=== PATIENT | female | born 1945 | race Caucasian/White ===

== ENCOUNTER 2025-03-22 13:53 | Observation (INO) ==
[2025-03-22 14:19] LABS: Basophils # (auto) 0.01 K/uL (0.00-0.20); Basophils % (auto) 0.1 %; Eosinophils # (auto) 0.22 K/uL (0.00-0.50); Eosinophils % (auto) 2.6 %; Hematocrit (blood only) 40.5 % (37.0-47.0); Hemoglobin 13.4 g/dl (12.0-16.0); Immature Granulocytes # (auto) 0.05 K/uL (0.01-0.20); Immature Granulocytes % (auto) 0.6 %; Lymphocytes # (auto) 1.63 K/uL (1.20-3.40); Lymphocytes % (auto) 19.6 %; Mean Corpuscular Hgb Conc 33.1 g/dL (32.0-36.0); Mean Corpuscular Volume 90.6 fL (80.0-100.0); Mean Platelet Volume 9.2 fL (9.4-12.4); Monocytes # (auto) 0.61 K/uL (0.11-0.59); Monocytes % (auto) 7.3 %; Neutrophils # (auto) 5.81 K/uL (1.40-6.50); Neutrophils % (auto) 69.8 %; Platelet Count 208 K/uL (130-400); RDW Coefficient of Variation 13.1 % (11.5-14.5); RDW Standard Deviation 43.3 fL (36.4-46.3); Red Blood Count 4.47 M/uL (4.20-5.40); White Blood Count 8.33 K/ul (4.8-10.8)
--- NOTE | 2025-03-22 14:23 | Emergency Department Note ---
Impression & Plan Acute lower GI bleeding, Abnormal EKG, Elevated troponin I level, Campylobacter diarrhea ED Provider Note NAME: JANETH HERMOSILLO AGE: 79 SEX: F : 1945 ARRIVES VIA: Walk-In INFORMANT: Patient, the patient's significant other ED PROVIDER(S): Jaswant Torres DO CHIEF COMPLAINT: GI bleeding HPI: The patient is a 79-year-old female who presented to the emergency department for an evaluation of GI bleeding. She has noticed dark stool as well as dark emesis over the course the last 24 hours. The patient started having diarrhea symptoms on Sunday. She presented to [facility]. She was admitted there but signed out AGAINST MEDICAL ADVICE to come here. She denies having any abdominal pain. She does complain of nausea and vomiting. She denies have any back pain. She denies having any fever. ROS: See above HPI for pertinent positives & negatives. A total of 10 systems reviewed and were otherwise negative. PAST MEDICAL HISTORY: See Below PAST SURGICAL HISTORY: See Below FAMILY HISTORY: See Below SOCIAL HISTORY: See Below HOME MEDICATIONS: See Below ALLERGIES: See Below VITALS: See Below PHYSICAL EXAMINATION: GENERAL: Patient is awake alert in no acute distress patient is resting comfortably and showing no signs of anxiety EYES: The conjunctivae are clear. The pupils are round and reactive. EARS, NOSE, MOUTH AND THROAT: The nose is without any evidence of any deformity. NECK: The neck is nontender and supple. RESPIRATORY: Normal respiratory effort is noted there is no evidence of wheezing rhonchi or rales CARDIOVASCULAR: Regular rate and rhythm noted there no murmurs rubs or gallops normal S1 normal S2. GASTROINTESTINAL: The abdomen is distended. There is no specific tenderness guarding rigidity elicited. Rectal exam revealed dark stool that was heme positive. MUSCULOSKELETAL/EXTREMITIES: There is no evidence of gross deformity full range of motion is noted in the hips and shoulders. SKIN: There is no obvious evidence of any rash. There are no petechiae, pallor or cyanosis noted. NEUROLOGIC: Patient is awake alert and oriented x3 MEDICAL DECISION MAKING: The patient is a 79-year-old female who presented to the emergency department for an evaluation of diarrhea and vomiting. She did have some dark stool. The stool was heme positive on physical exam. The patient was treated with proton pump inhibitor as well as H2 blockers. The patient was reevaluated multiple times. I discussed the patient's laboratory and radiographic studies with her and her family. Given her findings I discussed her condition with the on-call [facility] hospitalist. Stool studies were sent and ultimately were positive for Campylobacter. She was treated with Zithromax. Triage Nursing notes reviewed. Prior medical records reviewed Vital Signs: reviewed and remarkable for elevated blood pressure. Differential diagnosis: Etiologies such as appendicitis, diverticulitis, obstruction, inflammatory bowel disease, renal colic, PUD, biliary pathology, pancreatitis, mesenteric ischemia, aortic pathology, infections, genitourinary, UTI, perforated viscus, as well as others were entertained. ER treatment provided: See below Diagnostics interpreted by me: ECG: EKG was obtained in the emergency department. My interpretation is normal sinus rhythm at 77 bpm. There is no ectopy. Nonspecific ST abnormalities were noted. QTc was 384 ms. Cardiac Monitoring: An order was placed for continuous cardiac monitoring. The monitor shows a rate of 81 bpm with sinus rhythm. Laboratory studies: As stated above and show below. Imaging studies: See below. Radiographic imaging was reviewed by myself Consultation(s): I discussed this case with Dr. Pang who is on-call for the [facility] hospitalist group. Past Med/Surg History Problem List (Updated 03/22/25 @ 16:51 by Jaswant Torres DO) Campylobacter diarrhea (Acute) Elevated troponin I level (Acute) Abnormal EKG (Acute) Acute lower GI bleeding (Acute) Medical History (Updated 03/22/25 @ 16:51 by Jaswant Torres DO) Osteoporosis Migraine resolved after menopause GERD (gastroesophageal reflux disease) Surgical History (Updated 03/22/25 @ 15:26 by Reshma Thibodeaux PA-C) S/P wrist surgery History of ankle surgery H/O tubal ligation History of colonoscopy S/P excision of ganglion cyst left finger Family History (Updated 03/22/25 @ 15:21 by Reshma Thibodeaux PA-C) Other Breast cancer Lung cancer Ovarian cancer Prostate cancer Denies family history of Colorectal cancer Social History (Updated 03/22/25 @ 15:26 by Reshma Thibodeaux PA-C) Smoking Status: Never smoker Hx Alcohol Use: Yes Alcohol Intake Frequency: Monthly or Less Hx Substance Use: No Preferred Language: Czech Feels Safe at Home: Yes Allergies Allergies Allergy/AdvReac Type Severity Reaction Status Date / Time nickel AdvReac Rash Verified 03/22/25 15:26 Home Meds Home Medications Medication Instructions Recorded Confirmed duloxetine 60 mg capsule,delayed 60 mg PO HS 03/22/25 03/22/25 release omeprazole 20 mg capsule,delayed 20 mg PO DAILY 03/22/25 03/22/25 release Results & Data (ED) Vital Signs Vital Signs - 24 hr 03/22/25 13:56 03/22/25 14:12 03/22/25 14:26 Pulse Rate 83 Pulse Rate [Apical] 79 Pulse Rate from SpO2 Sensor Pulse Strength Normal Respiratory Rate 16 22 Respiratory Effort / Characteristics Non-Labored Spontaneous Respiratory Depth Normal Respiratory Pattern Regular Blood Pressure 128/70 Blood Pressure [Left Arm] 152/72 H Blood Pressure Mean 89 Blood Pressure Mean [Left Arm] 98 Blood Pressure Position Sitting Pulse Oximetry 98 97 96 Oxygen Delivery Method Room Air Room Air Room Air Sepsis Recent Fever Within 48 Hours No Sepsis New/Unexplained Change in Mental Status No Sepsis Action Taken by Nursing No Action Required 03/22/25 14:57 Pulse Rate 81 Pulse Rate [Apical] Pulse Rate from SpO2 Sensor 81 Pulse Strength Respiratory Rate 19 Respiratory Effort / Characteristics Respiratory Depth Respiratory Pattern Blood Pressure Blood Pressure [Left Arm] Blood Pressure Mean Blood Pressure Mean [Left Arm] Blood Pressure Position Pulse Oximetry 97 Oxygen Delivery Method Sepsis Recent Fever Within 48 Hours Sepsis New/Unexplained Change in Mental Status Sepsis Action Taken by Half-Way Medications Current Medication List: was personally reviewed by me Laboratory Data Attestation: I reviewed the patient's lab results. 03/22/25 14:06 03/22/25 14:06 Lab Results 03/22/25 03/22/25 03/22/25 Range/Units 14:06 14:13 15:05 WBC 8.33 (4.8-10.8) K/ul RBC 4.47 (4.20-5.40) M/uL Hgb 13.4 (12.0-16.0) g/dl POC Hgb 13.3 (12.0-16.0) g/dl Hct 40.5 (37.0-47.0) % POC Hct 39 (37-47) % MCV 90.6 (80.0-100.0) fL MCH 30.0 (25.0-34.0) pg MCHC 33.1 (32.0-36.0) g/dL RDW Std Deviation 43.3 (36.4-46.3) fL RDW Coeff of Cortez 13.1 (11.5-14.5) % Plt Count 208 (130-400) K/uL MPV 9.2 L (9.4-12.4) fL Immature Gran % (Auto) 0.6 % Neut % (Auto) 69.8 % Lymph % (Auto) 19.6 % Sanders % (Auto) 7.3 % Eos % (Auto) 2.6 % Baso % (Auto) 0.1 % Neut # (Auto) 5.81 (1.40-6.50) K/uL Lymph # (Auto) 1.63 (1.20-3.40) K/uL Sanders # (Auto) 0.61 H (0.11-0.59) K/uL Eos # (Auto) 0.22 (0.00-0.50) K/uL Baso # (Auto) 0.01 (0.00-0.20) K/uL Immature Gran # (Auto) 0.05 (0.01-0.20) K/uL PT 10.5 (9.0-12.0) Seconds INR 1.0 (0.9-1.1) APTT 25 (21-31) Seconds PTT Ratio 0.9 POC Sodium 142 (135-144) mmol/L Sodium 141 (136-145) mmol/L POC Potassium 3.5 (3.3-5.0) mmol/L Potassium 3.5 (3.5-5.1) mmol/L POC Chloride 109 (101-112) mmol/L Chloride 112 H (98-107) mmol/L Carbon Dioxide 23 (21-32) mmol/L POC Total CO2 21 L (24-31) mmol/L Anion Gap 6 (3-11) POC Anion Gap 16.0 (16-25) mmol/L POC BUN 18 (7-18) mg/dl BUN 19 (6-23) mg/dl Creatinine 0.94 (0.6-1.2) mg/dl POC Creatinine 1.0 (0.6-1.3) mg/dl Est Cr Clr Drug Dosing 54.1 ml/min eGFR 62.11 BUN/Creatinine Ratio 20.2 H (10-20) Glucose 119 H (70-99(Fasting)) mg/dl POC Glucose (other) 111 H (70-99) mg/dl Calcium 8.9 (8.6-10.3) mg/dl POC Ioniz Calcium Rodger 1.23 (1.12-1.32) mmol/l Total Bilirubin 0.6 (0.2-1.0) mg/dl AST 22 (13-39) U/L ALT 21 (7-52) U/L Alkaline Phosphatase 78 (34-104) U/L Troponin I High Sens 28.0 H (0-14) pg/ml Total Protein 6.3 (6.0-8.3) gm/dl Albumin 3.4 (3.4-5.0) gm/dl Globulin 2.9 (2.5-4.0) gm/dl Albumin/Globulin Ratio 1.2 (0.9-2) Lipase 14 (11-82) U/L Stl C. cayetanensis PCR Not Detected (NotDetected) Stool Rotavirus A PCR Not Detected (NotDetected) Stl Adenov F 40/41 PCR Not Detected (NotDetected) Stool Astrovirus (PCR) Not Detected (NotDetected) Stool Campylobacter PCR DETECTED A* (NotDetected) Stl C. diff Tox B Gene Negative Cdiff Gene (Neg) Stl C. diff [id number] NEGATIVE Stool Cryptosporidium PCR Not Detected (NotDetected) Stl E.coli Shiga Tox PCR Not Detected (NotDetected) Stl Enterotoxigenic E PCR Not Detected (NotDetected) Stool EPEC (PCR) Not Detected (NotDetected) Stool EAEC (PCR) Not Detected (NotDetected) Stl E. histolytica PCR Not Detected (NotDetected) Stool Giardia Lamblia PCR Not Detected (NotDetected) Stool Salmonella PCR Not Detected (NotDetected) Stool Sapovirus (PCR) Not Detected (NotDetected) Stl P. shigelloides PCR Not Detected (NotDetected) Stl Shigella/EIEC PCR Not Detected (NotDetected) St Y.enterocolitica PCR Not Detected (NotDetected) Stool Vibrio (PCR) Not Detected (NotDetected) Stl Vibrio cholerae PCR Not Detected (NotDetected) Stl Norovirus GI/GII PCR Not Detected (NotDetected) Blood Type A Positive Antibody Screen NEGATIVE Administered Medications Pantoprazole Sodium 40 mg/ (Dextrose) 100 mls @ 20 mls/hr IV Q5H RAN Stop: 04/21/25 15:59 Last Admin: 03/22/25 16:17 Dose: 8 mg/hr, 20 mls/hr Documented By: MIGUEL Discontinued Medications Pantoprazole Sodium (Protonix) 40 mg in 10 mls @ 5 mls/min IV NOW ONE Stop: 03/22/25 14:00 Last Admin: 03/22/25 14:20 Dose: 5 mls/min Documented By: LINDY Famotidine (Pepcid 20mg Iv Push) 20 mg in 5 mls @ 2.5 mls/min IV NOW STA Stop: 03/22/25 14:00 Last Admin: 03/22/25 14:20 Dose: 2.5 mls/min Documented By: LINDY Pantoprazole Sodium 40 mg/ (Dextrose) 110 mls @ 480 mls/hr IV NOW ONE Stop: 03/22/25 15:48 Last Admin: 03/22/25 16:15 Dose: 480 mls/hr Documented By: MIGUEL Ioversol (Optiray 320 100ml) 93 ml IV ONCE ONE Stop: 03/22/25 15:57 Last Admin: 03/22/25 15:57 Dose: 93 ml Documented By: HERBER Ondansetron HCl (Ondansetron Inj 2 Mg/Ml 2 Ml Vial) 4 mg IV NOW STA Stop: 03/22/25 14:00 Last Admin: 03/22/25 14:20 Dose: 4 mg Documented By: LINDY Pantoprazole Sodium (Pantoprazole Bolus/Drip) 1 each IV NOW STA Stop: 03/22/25 15:36 Last Admin: 03/22/25 16:15 Dose: 1 each Documented By: MIGUEL Imaging Data Attestation: I personally reviewed and interpreted this imaging study as follows: My Impression: 1 view chest x-ray and KUB were obtained in the emergency department. My interpretation is no free air or definite infiltrate, enlarged gastric shadow was noted, final report below. Radiologist's Impression: Chest X-Ray 03/22/25 13:59 EXAM: X-ray chest one-view portable CLINICAL HISTORY: Pain PRIORS: None TECHNIQUE: Frontal view chest FINDINGS: The chest is well-expanded. No airspace consolidation, effusion or congestive changes. Heart size is normal. No pneumothorax. Trachea is patent. Osseous structures demonstrate no acute abnormality. No radiopaque foreign body. IMPRESSION: No plain film evidence of an acute cardiopulmonary process. Electronically signed by Janae Tran 03-22-2025 3:33 PM KUB X-Ray 03/22/25 13:59 EXAMINATION: X-ray KUB/abdomen 1 view CLINICAL HISTORY: Abdominal pain PRIORS: None TECHNIQUE: Single frontal view abdomen FINDINGS: An extremely large amount of gas present in the distended stomach. Gas present throughout the colon. No dilated loops of bowel or air-fluid levels. No subdiaphragmatic gas. No formed stool identified in the colon. No unusual calcifications. IMPRESSION: Gaseous distention of the stomach which may represent gastric outlet obstruction. ACT 112: Positive. There are findings on this examination that require communication between the performing entity and the patient following Patient Test Result Information Act ([place] ACT 112) guidelines. Electronically signed by Janae Tran 03-22-2025 3:34 PM Discharge Plan Visit Data Chief Complaint: GI Assessment Stated Complaint: BLACK STOOL, BLACK EMESIS ED Provider: Jaswant Torres Discharge Problem: Acute lower GI bleeding, Abnormal EKG, Elevated troponin I level, Campylobacter diarrhea Patient Disposition: Being Evaluated by Hospitalist Condition: Fair Forms Stand Alone Forms: [facility] Prescriptions Prescriptions: No Action omeprazole 20 mg capsule,delayed release(DR/EC) 20 mg PO DAILY duloxetine 60 mg capsule,delayed release(DR/EC) 60 mg PO HS Referrals Referrals: PCP,NO [Physician] -
[2025-03-22 14:25] LABS: iSTAT Hemoglobin 13.3 g/dl (12.0-16.0); iSTAT Ionized Calcium 1.23 mmol/l (1.12-1.32); iSTAT Potassium 3.5 mmol/L (3.3-5.0)
[2025-03-22 14:36] LABS: Albumin Globulin Ratio 1.2 (0.9-2); Albumin Level 3.4 gm/dl (3.4-5.0); BUN Creatinine Ratio 20.2 (10-20); Bilirubin,Total 0.6 mg/dl (0.2-1.0); Calcium 8.9 mg/dl (8.6-10.3); Creatinine Clr Calc Pharmacy 54.1 ml/min; Globulin 2.9 gm/dl (2.5-4.0); Potassium 3.5 mmol/L (3.5-5.1); Total Protein 6.3 gm/dl (6.0-8.3)
[2025-03-22 14:48] LABS: Partial Thromboplastin Ratio 0.9; Partial Thromboplastin Time 25 Seconds (21-31); Prothrombin Time 10.5 Seconds (9.0-12.0)
--- NOTE | 2025-03-22 15:23 | History & Physical Report ---
Date of Service March 22, 2025 Assessment & Plan (1) Campylobacter diarrhea: (2) Acute lower GI bleeding: (3) Elevated troponin I level: Plan This is a 79 y/o female with osteoporosis who presents to the ED today with diarrhea and black stools for four days. She was admitted to an OSH two days ago but signed out AMA after there was no GI specialist available for further evaluation. Work-up in the ED at [facility] reveals normal H&H, normal BUN, mildly elevated troponin. Pt denies significant cardiac or GI history. She had a CT at OSH but is unsure of the results. KUB personally reviewed and shows large distended stomach with concern for gastric outlet obstruction #Diarrhea #Melena #Indigestion - Admit to med telemetry - Serial H&H - Pantoprazole gtt - Consult GI - NPO for now - Request records from OSH ([facility]) - CT abd/pel with IV contrast to further evaluate distended stomach - Consider NGT to decompress stomach pending CT results #Elevated troponin - no known history of cardiac disease - Trend troponin - Repeat EKG in AM Pt seen and reviewed with collaborating physician, Dr. Pang. Plan of care discussed and as outlined above. Code status: full code DVT prophylaxis: SCDs I spent a total of 68 minutes coordinating, documenting and providing care for this patient excluding time spent in the performance of separately billed services or time spent by another provider or QHP. Mami Thibodeaux PA-C Addendum: Stool studies positive for Campylobacter. Will start azithromycin. CT personally reviewed and shows distended stomach with retained contents. Spoke with Dr. Pang. Will order NGT placement for decompression. Mami Thibodeaux PA-C History of Present Illness Chief Complaint: diarrhea Primary Care Provider: Kassie Schaefer MD This is a 79 y/o female with osteoporosis who presents to the ED today with diarrhea and black stools for four days. She reports that she started with diarrhea on (four days ago) - 15 stools that day. Does not recall eating anything unusual the day prior. No sick contacts. No preceding symptoms. Associated lower abdominal cramping and occasional epigastric burning discomfort. +loss of appetite, increased eructation. Stools turned black on Sunday and was admitted to [facility]. She had a CT scan while she was there but unsure about the results. She signed out AMA today because no GI specialist was available, which she thought that she needed, and came to [facility] for evaluations. She was told that her C diff was negative but not given a specific diagnosis as to the etiology of her symptoms. She does note that she was put on heparin for DVT prophylaxis while there which her family was concerned about since she was having coffee-ground emesis and melanotic stools. She denies heartburn, post-prandial abdominal pain. She was started on omeprazole years ago when she was taking a lot of Aleve for migraines. Denies consistent NSAID use. No history of PUD. Allergies Allergy/AdvReac Type Severity Reaction Status Date / Time nickel AdvReac Rash Verified 03/22/25 15:26 Home Medications Medication Instructions Recorded Confirmed Type duloxetine 60 mg capsule,delayed 60 mg PO HS 03/22/25 03/22/25 History release omeprazole 20 mg capsule,delayed 20 mg PO DAILY 03/22/25 03/22/25 History release Past Med/Surg History Problem List (Updated 03/22/25 @ 18:48 by Reshma Thibodeaux PA-C) Diarrhea Campylobacter diarrhea (Acute) Elevated troponin I level (Acute) Abnormal EKG (Acute) Acute lower GI bleeding (Acute) Medical History (Updated 03/22/25 @ 18:48 by Reshma Thibodeaux PA-C) Osteoporosis Migraine resolved after menopause GERD (gastroesophageal reflux disease) Surgical History (Updated 03/22/25 @ 15:26 by Reshma Thibodeaux PA-C) S/P wrist surgery History of ankle surgery H/O tubal ligation History of colonoscopy S/P excision of ganglion cyst left finger Family History (Updated 03/22/25 @ 15:21 by Reshma Thibodeaux PA-C) Other Breast cancer Lung cancer Ovarian cancer Prostate cancer Denies family history of Colorectal cancer Social History (Updated 03/22/25 @ 15:26 by Reshma Thibodeaux PA-C) Smoking Status: Never smoker Second Hand Exposure: No; Do You Dip or Chew Tobacco: No; Hx Alcohol Use: No Hx Substance Use: No Preferred Language: Tanzanian Communication Ability: Effective Vocational Placement Specialist Required: No Beliefs That Will Affect Care: None Current Living Situation: Spouse and Other Current Living Situation Comment: lives with and son Other Information That Helps Us Care for You: No Feels Safe at Home: Yes Safety Concerns: Feels Safe At This Time Assistive Devices: None Review of Systems Review of Systems: All systems reviewed & are unremarkable except as noted in Subjective Physical Exam Physical Exam: Please see physician note for details of the physical exam. Results & Data Results & Data Vital Signs (Past 12 Hours) Vital Signs Pulse Pulse Resp BP BP Pulse Ox O2 Del Method 03/22/25 14:57 81 19 97 03/22/25 14:26 79 22 152/72 H 96 Room Air 03/22/25 14:12 97 Room Air 03/22/25 13:56 83 16 128/70 98 Room Air Laboratory Results Lab Results 03/22/25 03/22/25 Range/Units 14:06 14:13 WBC 8.33 (4.8-10.8) K/ul RBC 4.47 (4.20-5.40) M/uL Hgb 13.4 (12.0-16.0) g/dl POC Hgb 13.3 (12.0-16.0) g/dl Hct 40.5 (37.0-47.0) % POC Hct 39 (37-47) % MCV 90.6 (80.0-100.0) fL MCH 30.0 (25.0-34.0) pg MCHC 33.1 (32.0-36.0) g/dL RDW Std Deviation 43.3 (36.4-46.3) fL RDW Coeff of Cortez 13.1 (11.5-14.5) % Plt Count 208 (130-400) K/uL MPV 9.2 L (9.4-12.4) fL Immature Gran % (Auto) 0.6 % Neut % (Auto) 69.8 % Lymph % (Auto) 19.6 % Mesa % (Auto) 7.3 % Eos % (Auto) 2.6 % Baso % (Auto) 0.1 % Neut # (Auto) 5.81 (1.40-6.50) K/uL Lymph # (Auto) 1.63 (1.20-3.40) K/uL Mesa # (Auto) 0.61 H (0.11-0.59) K/uL Eos # (Auto) 0.22 (0.00-0.50) K/uL Baso # (Auto) 0.01 (0.00-0.20) K/uL Immature Gran # (Auto) 0.05 (0.01-0.20) K/uL PT 10.5 (9.0-12.0) Seconds INR 1.0 (0.9-1.1) APTT 25 (21-31) Seconds PTT Ratio 0.9 POC Sodium 142 (135-144) mmol/L Sodium 141 (136-145) mmol/L POC Potassium 3.5 (3.3-5.0) mmol/L Potassium 3.5 (3.5-5.1) mmol/L POC Chloride 109 (101-112) mmol/L Chloride 112 H (98-107) mmol/L Carbon Dioxide 23 (21-32) mmol/L POC Total CO2 21 L (24-31) mmol/L Anion Gap 6 (3-11) POC Anion Gap 16.0 (16-25) mmol/L POC BUN 18 (7-18) mg/dl BUN 19 (6-23) mg/dl Creatinine 0.94 (0.6-1.2) mg/dl POC Creatinine 1.0 (0.6-1.3) mg/dl Est Cr Clr Drug Dosing 54.1 ml/min eGFR 62.11 BUN/Creatinine Ratio 20.2 H (10-20) Glucose 119 H (70-99(Fasting)) mg/dl POC Glucose (other) 111 H (70-99) mg/dl Calcium 8.9 (8.6-10.3) mg/dl POC Ioniz Calcium Rodger 1.23 (1.12-1.32) mmol/l Total Bilirubin 0.6 (0.2-1.0) mg/dl AST 22 (13-39) U/L ALT 21 (7-52) U/L Alkaline Phosphatase 78 (34-104) U/L Troponin I High Sens 28.0 H (0-14) pg/ml Total Protein 6.3 (6.0-8.3) gm/dl Albumin 3.4 (3.4-5.0) gm/dl Globulin 2.9 (2.5-4.0) gm/dl Albumin/Globulin Ratio 1.2 (0.9-2) Lipase 14 (11-82) U/L Blood Type A Positive Antibody Screen NEGATIVE Medications Administered Discontinued Medications Pantoprazole Sodium (Protonix) 40 mg in 10 mls @ 5 mls/min IV NOW ONE Stop: 03/22/25 14:00 Last Admin: 03/22/25 14:20 Dose: 5 mls/min Documented By: LINDY Famotidine (Pepcid 20mg Iv Push) 20 mg in 5 mls @ 2.5 mls/min IV NOW STA Stop: 03/22/25 14:00 Last Admin: 03/22/25 14:20 Dose: 2.5 mls/min Documented By: LINDY Ondansetron HCl (Ondansetron Inj 2 Mg/Ml 2 Ml Vial) 4 mg IV NOW STA Stop: 03/22/25 14:00 Last Admin: 03/22/25 14:20 Dose: 4 mg Documented By: LINDY Supervising Physician Co-Signing Physician Notes I have seen and discussed the case with the collaborating advanced practitioner. I agree with the above H&P. I have reviewed and confirmed the patients medical history, the findings on physical examination, and the patients diagnosis and treatment plan with Morelia PEACE and agree with the information documented. Ms. Navarrete is a 79 y/o female with no significant medical history admitted for abdominal pain, nausea, and reports of melena/coffee ground emesis. Patient states that she was in [facility] after 15 episodes nonstop of diarrhea. She does endorse perhaps eating a dish with undercooked chicken, but no other diet changes, recent travel, etc. She states that while in the hospital she noted melena and coffee ground emesis, and her sister encouraged her to leave [facility] for a new hospital with GI GENERAL APPEARANCE: AxOx4, generally well-appearing female except mild discomfort with nausea. HEENT: NC, AT. MMM. EOMI, clear conjunctiva, oropharynx clear. NECK: Supple without lymphadenopathy. No stiffness or restricted ROM. HEART: Normal rate and regular rhythm, normal S1/S1, no m/r/g LUNGS: CTAB, moving air well. No crackles or wheezes are heard. ABDOMEN: Soft, protuberant, high pitched bowel sound in RUQ/epigastrium diminished in LLQ . BACK: No CVAT, no obvious deformity. EXTREMITIES: Without cyanosis, clubbing or edema. NEUROLOGICAL: Grossly nonfocal. Alert and oriented, moving all 4 extremities. CN not formally tested but appear grossly intact. Skin: Warm and dry without any rash. #Melena #Coffeeground emesis reported #Acute diarrhea iso campylobacter gastroenteritis hemoocult + ED, possibly 2/2 GI infection start azithromycin IV for now CT AB ordered, pending formal read NPO with PPI drip GI consult hgb stable, but will trend Given distention noted on XR and CT trial NGT given nausea wretching, patient did not tolerate rest of plan as above I spent a total of 20 minutes coordinating, documenting, and providing care for this patient excluding time spent in the performance of separately billed services. All of the aforementioned completed outside of collaborating with the assigned advanced practitioner for a full treatment plan. I have reviewed the advanced practitioner's documentation, and I agree with, and take responsibility for the plan of care
--- NOTE | 2025-03-22 15:33 | XRay Report ---
EXAM: X-ray chest one-view portable CLINICAL HISTORY: Pain PRIORS: None TECHNIQUE: Frontal view chest FINDINGS: The chest is well-expanded. No airspace consolidation, effusion or congestive changes. Heart size is normal. No pneumothorax. Trachea is patent. Osseous structures demonstrate no acute abnormality. No radiopaque foreign body. IMPRESSION: No plain film evidence of an acute cardiopulmonary process. Electronically signed by Janae Tran 03-22-2025 3:33 PM
--- NOTE | 2025-03-22 15:34 | XRay Report ---
EXAMINATION: X-ray KUB/abdomen 1 view CLINICAL HISTORY: Abdominal pain PRIORS: None TECHNIQUE: Single frontal view abdomen FINDINGS: An extremely large amount of gas present in the distended stomach. Gas present throughout the colon. No dilated loops of bowel or air-fluid levels. No subdiaphragmatic gas. No formed stool identified in the colon. No unusual calcifications. IMPRESSION: Gaseous distention of the stomach which may represent gastric outlet obstruction. ACT 112: Positive. There are findings on this examination that require communication between the performing entity and the patient following Patient Test Result Information Act ([place] ACT 112) guidelines. Electronically signed by Janae Tran 03-22-2025 3:34 PM
[2025-03-22 16:06] LABS: C. diff 027-NAP1-BI NEGATIVE; Cdiff Toxin B Gene (2yr or >) Negative Cdiff Gene (Neg)
[2025-03-22 16:38] LABS: Adenovirus F 40/41 PCR Not Detected (NotDetected); Astrovirus PCR Not Detected (NotDetected); Cryptosporidium PCR Not Detected (NotDetected); Cyclospora cayetanensis PCR Not Detected (NotDetected); Entamoeba histolytica PCR Not Detected (NotDetected); Enteroaggregative E.coli(EAEC) Not Detected (NotDetected); Enteropathogenic E.coli (EPEC) Not Detected (NotDetected); Enterotoxigenic E.coli (ETEC) Not Detected (NotDetected); Giardia lamblia PCR Not Detected (NotDetected); Norovirus GI/GII PCR Not Detected (NotDetected); Plesiomonas shigelloides PCR Not Detected (NotDetected); Rotavirus A PCR Not Detected (NotDetected); Salmonella PCR Not Detected (NotDetected); Sapovirus PCR Not Detected (NotDetected); Shiga-like Toxin E.coli (STEC) Not Detected (NotDetected); Shigella/Enteroinvasive E.coli Not Detected (NotDetected); Vibrio cholerae PCR Not Detected (NotDetected); Vibrio species PCR Not Detected (NotDetected); Yersinia enterocolitica PCR Not Detected (NotDetected)
[2025-03-22 16:40] LABS: Campylobacter PCR DETECTED (NotDetected)
--- NOTE | 2025-03-22 19:06 | CT Scan Report ---
EXAM: CT abd pelvis IV con only CLINICAL HISTORY: Melanotic diarrhea. TECHNIQUE: CT of the abdomen and pelvis was performed with IV contrast, with the following protocol: axial images with, and reconstructed coronal and sagittal images. One of the following dose reduction techniques was utilized for this exam: Automated exposure control, adjustment of the mA and/or kV according to patient size, and use of iterative reconstruction. COMPARISON: None. FINDINGS: Abdomen: Liver: Normal in size, shape, and density. No focal lesions, cysts, or masses were identified. Hepatic vasculature and biliary ducts are unremarkable. Gallbladder and Biliary System: The gallbladder is normal in size and shape. Small dense gallstones were noted in its neck region. No wall thickening or pericholecystic fluid The common bile duct is normal in caliber without dilation. Pancreas: Pancreatic head, body, and tail are visualized and appear normal in size and density. No pancreatic masses or calcifications were noted. The pancreatic duct is not dilated. Spleen: Normal in size, shape, and density. No splenic lesions or masses were identified. Appendix: The appendix is normal in size without martha appendiceal fat stranding, and without an appendicolith. No evidence of appendiceal abscess or perforation. Kidneys and Adrenal Glands: Two left renal middle calyceal dense stones noted of an average 4 mm size. Both kidneys are normal in size, shape, and position. Cortical thickness is within normal limits. No renal calculi or hydronephrosis. Adrenal glands are unremarkable with no evidence of masses or hyperplasia. Diffuse aortic atherosclerotic changes noted. Pelvis: Urinary Bladder: Normal in contour and wall thickness. No intraluminal lesions identified. Uterus: Average age matched size and contour. No masses or abnormal thickening. Ovaries: Not well visualized but no gross abnormalities noted. Vagina: Normal in contour and wall thickness. Cervix: No evidence of mass or abnormal thickening. Peritoneal and Retroperitoneal Structures: No free fluid or abnormal fluid collections were identified within the abdomen or pelvis. No lymphadenopathy was noted. Bowel: A small sigmoid non-complicated diverticulum is seen. The visualized bowel loops are normal in caliber and appearance. No evidence of bowel obstruction or wall thickening. Bones and Soft Tissues: Mild lumbar spondylosis with bilateral facet joint osteoarthritis noted. Pelvic bones and soft tissues are unremarkable. No fractures or abnormal masses were identified. Mild bilateral pleural effusions noted. A small paraesophageal hiatus hernia is seen. A small umbilical hernia harbouring omental fat is seen. IMPRESSION: 1. Tiny gall bladder stones noted. 2. A small sigmoid non-complicated diverticulum is seen. 3. Left renal middle calyceal dense stones noted. 4. Mild bilateral pleural effusions noted. 5. A small paraesophageal hiatus hernia is seen. 6. A small umbilical hernia harbouring omental fat is seen. 7. Bowel loops are normal in size and appearance. 8. Overall, CT with and without contrast abdomen and pelvis demonstrate normal findings without evidence of acute intra-abdominal pathology. Clinical correlation is recommended for further evaluation. Electronically signed by Wesley Celaya 03-22-2025 7:06 PM
[2025-03-22 21:53] LABS: Hemoglobin 13.6 g/dl (12.0-16.0)
[2025-03-23 02:16] LABS: Basophils # (auto) 0.01 K/uL (0.00-0.20); Basophils % (auto) 0.1 %; Eosinophils % (auto) 2.7 %; Hematocrit (blood only) 38.7 % (37.0-47.0); Hemoglobin 12.8 g/dl (12.0-16.0); Immature Granulocytes # (auto) 0.05 K/uL (0.01-0.20); Immature Granulocytes % (auto) 0.7 %; Lymphocytes % (auto) 18.6 %; Mean Corpuscular Hemoglobin 29.7 pg (25.0-34.0); Mean Corpuscular Hgb Conc 33.1 g/dL (32.0-36.0); Mean Corpuscular Volume 89.8 fL (80.0-100.0); Mean Platelet Volume 9.6 fL (9.4-12.4); Monocytes # (auto) 0.81 K/uL (0.11-0.59); Monocytes % (auto) 10.8 %; Neutrophils # (auto) 5.05 K/uL (1.40-6.50); Neutrophils % (auto) 67.1 %; Platelet Count 188 K/uL (130-400); RDW Coefficient of Variation 12.9 % (11.5-14.5); RDW Standard Deviation 42.6 fL (36.4-46.3); Red Blood Count 4.31 M/uL (4.20-5.40); White Blood Count 7.52 K/ul (4.8-10.8)
[2025-03-23 02:31] LABS: BUN Creatinine Ratio 16.1 (10-20); Calcium 8.3 mg/dl (8.6-10.3); Creatinine Clr Calc Pharmacy 54.7 ml/min; Potassium 3.3 mmol/L (3.5-5.1)
--- NOTE | 2025-03-23 08:23 | Hospitalist Progress Note ---
Date of Service March 23, 2025 Assessment & Plan (1) Campylobacter diarrhea: (2) Acute lower GI bleeding: (3) Elevated troponin I level: Plan This is a 79 y/o female with osteoporosis who presents to the ED today with diarrhea and black stools for four days. She was admitted to an OSH two days ago but signed out AMA after there was no GI specialist available for further evaluation. Campylobacter jejuni infection Possible upper GI bleed Patient presented to the hospital with diarrhea and black tarry stool for 4 days; was admitted to OSH; presented to the ED for further evaluation No leukocytosis present Hemoglobin stable Stool PCR positive for Campylobacter CT abdomen pelvis No acute finding Continue on azithromycin; plan to treat for 3 days will start regular diet, dc fluids protonix bid monitor for bleeding Elevated high sensitive troponin of undetermined significance in setting of diarrhea High sensitive troponin elevated to 28 on admission; up trended to 65 Patient denies any chest pain Will obtain echocardiogram Full code DVT prophylaxis SCDs Please note the above document was generated using voice recognition software. It may contain grammatical, syntax or spelling errors. Any formal questions or concerns about the content, text or information contained within the body of this dictation should be directly addressed to the provider for clarification Admission and Anticipated Discharge Date Admission Date: March 22, 2025 Subjective Patient seen and examined at bedside. She continues to have frequent loose stool. No fever, chills, chest pain, shortness of breath or abdominal pain. Review of Systems Review of Systems: All systems reviewed & are unremarkable except as noted in Subjective Physical Exam Physical Exam: Constitutional: WD/WN, vitals as above, NAD, sitting up in bed, pleasant, conversing easily Respiratory: normal respiratory effort, lungs clear to auscultation, no wheeze, rales, rhonchi. Normal insp/exp effort, no accessory muscle use Cardiovascular: RRR, no murmur, no edema Vessels: no JVD or carotid bruit Chest: normal inspection of chest Abdomen: normal bowel sounds, soft, nontender, no hepatosplenomegaly Musculoskeletal: no cyanosis or clubbing, extremities motor strength 5/5 Skin: no rashes, warm and dry normal turgor Neurologic: PERRL, EOMI, accommodation nl, no face palsy, no dysarthria CN's II- XI intact bilaterally and moves all extremities Psychiatric: A+Ox3, euthymic affect Results & Data Results & Data Vital Signs (Past 12 Hours) Vital Signs Temp Pulse Resp BP Pulse Ox O2 Del Method 03/23/25 07:42 36.8 C 76 18 114/65 96 Room Air 03/23/25 02:09 36.9 C 76 16 148/73 H 95 Room Air 03/22/25 22:42 36.6 C 74 16 128/71 97 Room Air
--- NOTE | 2025-03-23 09:12 | Gastrointestinal Consultation ---
Date of Consultation March 23, 2025 Assessment & Plan (1) Campylobacter diarrhea: Clinically improving on azithromycin. Continue present management and advance diet as tolerated. (2) Abnormal feces: Black stool possible melena. Likely in the setting of Campylobacter enteritis. No intervention warranted at this time. Will check stool for occult blood. History of Present Illness Reason for Consultation: Acute diarrhea possible GI bleed Attending Physician: Oliver Avendaño MD History of Present Illness Patient was in usual state of good health until 5 days prior to admission started developing diarrhea lower abdominal pain and occasional vomiting. Noted that her bowel movements were black in color. Denies any prior significant GI illnesses. Recent dubious food encounter. No other sick contacts. No recent travel no recent antibiotic use. Stool studies on admission positive for Campylobacter started on azithromycin. Allergies Allergy/AdvReac Type Severity Reaction Status Date / Time nickel AdvReac Rash Verified 03/22/25 15:26 Home Medications Medication Instructions Recorded Confirmed Type duloxetine 60 mg capsule,delayed 60 mg PO HS 03/22/25 03/22/25 History release omeprazole 20 mg capsule,delayed 20 mg PO DAILY 03/22/25 03/22/25 History release Patient History Medical History (Updated 03/23/25 @ 09:11 by Mainor Nuñez MD) Osteoporosis Migraine resolved after menopause GERD (gastroesophageal reflux disease) Surgical History (Updated 03/22/25 @ 15:26 by Reshma Thibodeaux PA-C) S/P wrist surgery History of ankle surgery H/O tubal ligation History of colonoscopy S/P excision of ganglion cyst left finger Family History (Updated 03/22/25 @ 15:21 by Reshma Thibodeaux PA-C) Other Breast cancer Lung cancer Ovarian cancer Prostate cancer Denies family history of Colorectal cancer Social History (Updated 03/22/25 @ 15:26 by Reshma Thibodeaux PA-C) Smoking Status: Never smoker Second Hand Exposure: No; Do You Dip or Chew Tobacco: No; Hx Alcohol Use: No Hx Substance Use: No Preferred Language: Albanian Communication Ability: Effective Personnel Associate Required: No Beliefs That Will Affect Care: None Current Living Situation: Spouse and Other Current Living Situation Comment: lives with and son Other Information That Helps Us Care for You: No Feels Safe at Home: Yes Safety Concerns: Feels Safe At This Time Assistive Devices: None Review of Systems Review of Systems: No fever No chills No SOB No CP No Abd pain Physical Exam Physical Exam: Eyes; anicteric HENT No masses Chest clear to A Cor S1, S2 physiologic Abd: softer nontender no masses Ext no edema Results & Data Vital Signs (Past 12 Hours) Vital Signs Temp Pulse Resp BP Pulse Ox O2 Del Method 03/23/25 07:42 36.8 C 76 18 114/65 96 Room Air 03/23/25 02:09 36.9 C 76 16 148/73 H 95 Room Air 03/22/25 22:42 36.6 C 74 16 128/71 97 Room Air Laboratory Results Laboratory Results - last 48 hr 03/22/25 03/22/25 03/22/25 14:06 14:13 15:05 WBC 8.33 RBC 4.47 Hgb 13.4 POC Hgb 13.3 Hct 40.5 POC Hct 39 MCV 90.6 MCH 30.0 MCHC 33.1 RDW Std Deviation 43.3 RDW Coeff of Cortez 13.1 Plt Count 208 MPV 9.2 L Immature Gran % (Auto) 0.6 Neut % (Auto) 69.8 Lymph % (Auto) 19.6 Wilkes % (Auto) 7.3 Eos % (Auto) 2.6 Baso % (Auto) 0.1 Neut # (Auto) 5.81 Lymph # (Auto) 1.63 Wilkes # (Auto) 0.61 H Eos # (Auto) 0.22 Baso # (Auto) 0.01 Immature Gran # (Auto) 0.05 PT 10.5 INR 1.0 APTT 25 PTT Ratio 0.9 POC Sodium 142 Sodium 141 POC Potassium 3.5 Potassium 3.5 POC Chloride 109 Chloride 112 H Carbon Dioxide 23 POC Total CO2 21 L Anion Gap 6 POC Anion Gap 16.0 POC BUN 18 BUN 19 Creatinine 0.94 POC Creatinine 1.0 Est Cr Clr Drug Dosing 54.1 eGFR 62.11 BUN/Creatinine Ratio 20.2 H Glucose 119 H POC Glucose (other) 111 H Calcium 8.9 POC Ioniz Calcium Rodger 1.23 Total Bilirubin 0.6 AST 22 ALT 21 Alkaline Phosphatase 78 Troponin I High Sens 28.0 H Total Protein 6.3 Albumin 3.4 Globulin 2.9 Albumin/Globulin Ratio 1.2 Lipase 14 Stl C. cayetanensis PCR Not Detected Stool Rotavirus A PCR Not Detected Stl Adenov F 40/41 PCR Not Detected Stool Astrovirus (PCR) Not Detected Stool Campylobacter PCR DETECTED A* Stl C. diff Tox B Gene Negative Cdiff Gene Stl C. diff 027-NAP1-[id number] NEGATIVE Stool Cryptosporidium PCR Not Detected Stl E.coli Shiga Tox PCR Not Detected Stl Enterotoxigenic E PCR Not Detected Stool EPEC (PCR) Not Detected Stool EAEC (PCR) Not Detected Stl E. histolytica PCR Not Detected Stool Giardia Lamblia PCR Not Detected Stool Salmonella PCR Not Detected Stool Sapovirus (PCR) Not Detected Stl P. shigelloides PCR Not Detected Stl Shigella/EIEC PCR Not Detected St Y.enterocolitica PCR Not Detected Stool Vibrio (PCR) Not Detected Stl Vibrio cholerae PCR Not Detected Stl Norovirus GI/GII PCR Not Detected Blood Type A Positive Antibody Screen NEGATIVE 03/22/25 03/22/25 03/23/25 16:27 21:00 01:53 WBC 7.52 RBC 4.31 Hgb 13.6 12.8 POC Hgb Hct 41.0 38.7 POC Hct MCV 89.8 MCH 29.7 MCHC 33.1 RDW Std Deviation 42.6 RDW Coeff of Cortez 12.9 Plt Count 188 MPV 9.6 Immature Gran % (Auto) 0.7 Neut % (Auto) 67.1 Lymph % (Auto) 18.6 Wilkes % (Auto) 10.8 Eos % (Auto) 2.7 Baso % (Auto) 0.1 Neut # (Auto) 5.05 Lymph # (Auto) 1.40 Wilkes # (Auto) 0.81 H Eos # (Auto) 0.20 Baso # (Auto) 0.01 Immature Gran # (Auto) 0.05 PT INR APTT PTT Ratio POC Sodium Sodium 139 POC Potassium Potassium 3.3 L POC Chloride Chloride 111 H Carbon Dioxide 21 POC Total CO2 Anion Gap 7 POC Anion Gap POC BUN BUN 15 Creatinine 0.93 POC Creatinine Est Cr Clr Drug Dosing 54.7 eGFR 62.91 BUN/Creatinine Ratio 16.1 Glucose 122 H POC Glucose (other) Calcium 8.3 L POC Ioniz Calcium Rodger Total Bilirubin AST ALT Alkaline Phosphatase Troponin I High Sens 24.6 H 51.4 H* D 65.0 H* D Total Protein Albumin Globulin Albumin/Globulin Ratio Lipase Stl C. cayetanensis PCR Stool Rotavirus A PCR Stl Adenov F PCR Stool Astrovirus (PCR) Stool Campylobacter PCR Stl C. diff Tox B Gene Stl C. diff [id number] Stool Cryptosporidium PCR Stl E.coli Shiga Tox PCR Stl Enterotoxigenic E PCR Stool EPEC (PCR) Stool EAEC (PCR) Stl E. histolytica PCR Stool Giardia Lamblia PCR Stool Salmonella PCR Stool Sapovirus (PCR) Stl P. shigelloides PCR Stl Shigella/EIEC PCR St Y.enterocolitica PCR Stool Vibrio (PCR) Stl Vibrio cholerae PCR Stl Norovirus GI/GII PCR Blood Type Antibody Screen 03/23/25 07:44 WBC RBC Hgb POC Hgb Hct POC Hct MCV MCH MCHC RDW Std Deviation RDW Coeff of Cortez Plt Count MPV Immature Gran % (Auto) Neut % (Auto) Lymph % (Auto) Wilkes % (Auto) Eos % (Auto) Baso % (Auto) Neut # (Auto) Lymph # (Auto) Wilkes # (Auto) Eos # (Auto) Baso # (Auto) Immature Gran # (Auto) PT INR APTT PTT Ratio POC Sodium Sodium POC Potassium Potassium POC Chloride Chloride Carbon Dioxide POC Total CO2 Anion Gap POC Anion Gap POC BUN BUN Creatinine POC Creatinine Est Cr Clr Drug Dosing eGFR BUN/Creatinine Ratio Glucose POC Glucose (other) Calcium POC Ioniz Calcium Rodger Total Bilirubin AST ALT Alkaline Phosphatase Troponin I High Sens 54.3 H* D Total Protein Albumin Globulin Albumin/Globulin Ratio Lipase Stl C. cayetanensis PCR Stool Rotavirus A PCR Stl Adenov F PCR Stool Astrovirus (PCR) Stool Campylobacter PCR Stl C. diff Tox B Gene Stl C. diff [id number] Stool Cryptosporidium PCR Stl E.coli Shiga Tox PCR Stl Enterotoxigenic E PCR Stool EPEC (PCR) Stool EAEC (PCR) Stl E. histolytica PCR Stool Giardia Lamblia PCR Stool Salmonella PCR Stool Sapovirus (PCR) Stl P. shigelloides PCR Stl Shigella/EIEC PCR St Y.enterocolitica PCR Stool Vibrio (PCR) Stl Vibrio cholerae PCR Stl Norovirus GI/GII PCR Blood Type Antibody Screen Diagnostic Findings Chest X-Ray 03/22/25 13:59 EXAM: X-ray chest one-view portable CLINICAL HISTORY: Pain PRIORS: None TECHNIQUE: Frontal view chest FINDINGS: The chest is well-expanded. No airspace consolidation, effusion or congestive changes. Heart size is normal. No pneumothorax. Trachea is patent. Osseous structures demonstrate no acute abnormality. No radiopaque foreign body. IMPRESSION: No plain film evidence of an acute cardiopulmonary process. Electronically signed by Janae Tran 03-22-2025 3:33 PM KUB X-Ray 03/22/25 13:59 EXAMINATION: X-ray KUB/abdomen 1 view CLINICAL HISTORY: Abdominal pain PRIORS: None TECHNIQUE: Single frontal view abdomen FINDINGS: An extremely large amount of gas present in the distended stomach. Gas present throughout the colon. No dilated loops of bowel or air-fluid levels. No subdiaphragmatic gas. No formed stool identified in the colon. No unusual calcifications. IMPRESSION: Gaseous distention of the stomach which may represent gastric outlet obstruction. ACT 112: Positive. There are findings on this examination that require communication between the performing entity and the patient following Patient Test Result Information Act ([place] ACT 112) guidelines. Electronically signed by Janae Tran 03-22-2025 3:34 PM Abdomen/Pelvis CT 03/22/25 15:30 EXAM: CT abd pelvis IV con only CLINICAL HISTORY: Melanotic diarrhea. TECHNIQUE: CT of the abdomen and pelvis was performed with IV contrast, with the following protocol: axial images with, and reconstructed coronal and sagittal images. One of the following dose reduction techniques was utilized for this exam: Automated exposure control, adjustment of the mA and/or kV according to patient size, and use of iterative reconstruction. COMPARISON: None. FINDINGS: Abdomen: Liver: Normal in size, shape, and density. No focal lesions, cysts, or masses were identified. Hepatic vasculature and biliary ducts are unremarkable. Gallbladder and Biliary System: The gallbladder is normal in size and shape. Small dense gallstones were noted in its neck region. No wall thickening or pericholecystic fluid The common bile duct is normal in caliber without dilation. Pancreas: Pancreatic head, body, and tail are visualized and appear normal in size and density. No pancreatic masses or calcifications were noted. The pancreatic duct is not dilated. Spleen: Normal in size, shape, and density. No splenic lesions or masses were identified. Appendix: The appendix is normal in size without martha appendiceal fat stranding, and without an appendicolith. No evidence of appendiceal abscess or perforation. Kidneys and Adrenal Glands: Two left renal middle calyceal dense stones noted of an average 4 mm size. Both kidneys are normal in size, shape, and position. Cortical thickness is within normal limits. No renal calculi or hydronephrosis. Adrenal glands are unremarkable with no evidence of masses or hyperplasia. Diffuse aortic atherosclerotic changes noted. Pelvis: Urinary Bladder: Normal in contour and wall thickness. No intraluminal lesions identified. Uterus: Average age matched size and contour. No masses or abnormal thickening. Ovaries: Not well visualized but no gross abnormalities noted. Vagina: Normal in contour and wall thickness. Cervix: No evidence of mass or abnormal thickening. Peritoneal and Retroperitoneal Structures: No free fluid or abnormal fluid collections were identified within the abdomen or pelvis. No lymphadenopathy was noted. Bowel: A small sigmoid non-complicated diverticulum is seen. The visualized bowel loops are normal in caliber and appearance. No evidence of bowel obstruction or wall thickening. Bones and Soft Tissues: Mild lumbar spondylosis with bilateral facet joint osteoarthritis noted. Pelvic bones and soft tissues are unremarkable. No fractures or abnormal masses were identified. Mild bilateral pleural effusions noted. A small paraesophageal hiatus hernia is seen. A small umbilical hernia harbouring omental fat is seen. IMPRESSION: 1. Tiny gall bladder stones noted. 2. A small sigmoid non-complicated diverticulum is seen. 3. Left renal middle calyceal dense stones noted. 4. Mild bilateral pleural effusions noted. 5. A small paraesophageal hiatus hernia is seen. 6. A small umbilical hernia harbouring omental fat is seen. 7. Bowel loops are normal in size and appearance. 8. Overall, CT with and without contrast abdomen and pelvis demonstrate normal findings without evidence of acute intra-abdominal pathology. Clinical correlation is recommended for further evaluation. Electronically signed by Wesley Celaya 03-22-2025 7:06 PM PG Care Time/CCT Total # of Minutes Spent Total Time Spent with Patient: Total time spent is greater than 50% in coordination of care (as documented) at patient's floor/unit and/or counseling patient: Coding Level of Care Code 18625 INT INP/OBS CARE 2/55MIN Diagnoses Campylobacter diarrhea A04.5 Abnormal feces R19.5
--- NOTE | 2025-03-23 15:16 | Discharge Summary ---
Date of Service March 23, 2025 Admission HPI Per Admitting Provider This is a 79 y/o female with osteoporosis who presents to the ED today with diarrhea and black stools for four days. She reports that she started with diarrhea on (four days ago) - 15 stools that day. Does not recall eating anything unusual the day prior. No sick contacts. No preceding symptoms. Associated lower abdominal cramping and occasional epigastric burning discomfort. +loss of appetite, increased eructation. Stools turned black on Sunday and was admitted to [facility]. She had a CT scan while she was there but unsure about the results. She signed out AMA today because no GI specialist was available, which she thought that she needed, and came to [facility] for evaluations. She was told that her C diff was negative but not given a specific diagnosis as to the etiology of her symptoms. She does note that she was put on heparin for DVT prophylaxis while there which her family was concerned about since she was having coffee-ground emesis and melanotic stools. She denies heartburn, post-prandial abdominal pain. She was started on omeprazole years ago when she was taking a lot of Aleve for migraines. Denies consistent NSAID use. No history of PUD. Admission Exam Per Admitting Provider GENERAL APPEARANCE: AxOx4, generally well-appearing female except mild discomfort with nausea. HEENT: NC, AT. MMM. EOMI, clear conjunctiva, oropharynx clear. NECK: Supple without lymphadenopathy. No stiffness or restricted ROM. HEART: Normal rate and regular rhythm, normal S1/S1, no m/r/g LUNGS: CTAB, moving air well. No crackles or wheezes are heard. ABDOMEN: Soft, protuberant, high pitched bowel sound in RUQ/epigastrium diminished in LLQ . BACK: No CVAT, no obvious deformity. EXTREMITIES: Without cyanosis, clubbing or edema. NEUROLOGICAL: Grossly nonfocal. Alert and oriented, moving all 4 extremities. CN not formally tested but appear grossly intact. Skin: Warm and dry without any rash. Principal Diagnosis Campylobacter infection Discharge Exam Constitutional: WD/WN, vitals as above, NAD, sitting up in bed, pleasant, conversing easily Respiratory: normal respiratory effort, lungs clear to auscultation, no wheeze, rales, rhonchi. Normal insp/exp effort, no accessory muscle use Cardiovascular: RRR, no murmur, no edema Vessels: no JVD or carotid bruit Chest: normal inspection of chest Abdomen: normal bowel sounds, soft, nontender, no hepatosplenomegaly Musculoskeletal: no cyanosis or clubbing, extremities motor strength 5/5 Skin: no rashes, warm and dry normal turgor Neurologic: PERRL, EOMI, accommodation nl, no face palsy, no dysarthria CN's II- XI intact bilaterally and moves all extremities Psychiatric: A+Ox3, euthymic affect Discharge Data Allergies Allergy/AdvReac Type Severity Reaction Status Date / Time nickel AdvReac Rash Verified 03/22/25 15:26 Consultations 03/22/25 15:11 ED Decision to Admit Stat 03/22/25 18:02 Consult Gastroenterology Routine Ordered Studies 03/22/25 15:30 CT Abd and Pelvis [CT abd pelvis IV con only] Stat Hospital Course (1) Campylobacter diarrhea: (2) Acute lower GI bleeding: (3) Elevated troponin I level: Plan This is a 79 y/o female with osteoporosis who presents to the ED today with diarrhea and black stools for four days. She was admitted to an OSH two days ago but signed out AMA after there was no GI specialist available for further evaluation. Campylobacter jejuni infection Possible upper GI bleed Patient presented to the hospital with diarrhea and black tarry stool for 4 days; was admitted to OSH; presented to the ED for further evaluation No leukocytosis present Hemoglobin stable Stool PCR positive for Campylobacter CT abdomen pelvis No acute finding Patient was treated with azithromycin, IV fluid with improvement in diarrhea. On the day of the discharge, her diarrhea had stopped. She was able to tolerate regular diet. She was seen by GI; black stool was thought secondary to Campylobacter enteritis. Patient was discharged home with azithromycin and Protonix twice daily; patient to follow-up with PCP as outpatient. Elevated high sensitive troponin of undetermined significance in setting of diarrhea High sensitive troponin elevated to 28 on admission; up trended to 65 and downtrended Patient denies any chest pain Echocardiogram showed EF of 60 to 65%; grade 1 diastolic dysfunction. No regional wall motion abnormalities. Patient to follow-up with PCP, obtain lipid panel and discuss possible outpatient stress test. Please note the above document was generated using voice recognition software. It may contain grammatical, syntax or spelling errors. Any formal questions or concerns about the content, text or information contained within the body of this dictation should be directly addressed to the provider for clarification Total Time Total Time Spent Total Time Spent (In Minutes): 45 Total Time Includes: Examination of the Patient, Discharge Planning, Medication Reconciliation, Communication With Other Providers and Other Discharge Plan Discharge Items Patient Disposition: Home - Self-Care Reason For Visit: GI BLEED Discharge Diagnosis: Campylobacter enteritis Condition on Discharge: Fair Activity: Resume your previous activity Non-emergency contact: Primary Care Provider Call non-emergency contact if: you have any medication questions and your symptoms worsen Follow-up/Referrals: Kassie Schaefer MD [Primary Care Provider] - Diet: Regular Addtl Attending Provider Instructions: You were admitted to the hospital due to diarrhea. The cause for the diarrhea is a bacteria called Campylobacter. You were treated with antibiotic during the hospitalization. You are prescribed azithromycin to be taken for 1 more day(tomorrow) to complete the antibiotic course. You are also prescribed Protonix 40 mg to be taken twice a day. Please follow-up with your primary care doctor. Obtain lipid profile. Please discuss regarding outpatient stress test. Pending Studies at Discharge: No Stand-Alone Forms: My [facility], Smoking Cessation Medications and DC Order Prescriptions: New azithromycin 250 mg Tablet 500 mg PO QAM 1 Days Qty: 2 0RF pantoprazole 40 mg Tablet,Delayed Release (Dr/Ec) 40 mg PO BID 30 Days Qty: 60 0RF Continued duloxetine 60 mg capsule,delayed release(DR/EC) 60 mg PO HS Discontinued omeprazole 20 mg capsule,delayed release(DR/EC) 20 mg PO DAILY Admission Data Admit Date/Time: 03/22/25 15:35 Attending Provider: Oliver Avendaño Admit Provider: Nohemy Pang Primary Care Provider: Kassie Schaefer Other Providers: Nohemy Pang; Nasreen Rudd Jr
[2025-03-23 15:18] VITALS: BP 135/69; RESP 20; TEMP 98.6; O2SAT 96
[2025-03-23 15:38] VITALS: PULSE 72
--- NOTE | 2025-03-24 07:34 | Electrocardiogram Report ---
Test Reason : Blood Pressure : */* mmHG Vent. Rate : 77 BPM Atrial Rate : 77 BPM P-R Int : 134 ms QRS Dur : 80 ms QT Int : 340 ms P-R-T Axes : 85 6 81 degrees QTcB Int : 384 ms Normal sinus rhythm Left atrial enlargement Nonspecific ST and T wave abnormality Abnormal ECG No previous ECGs available Confirmed by Anjana Yanes ([place]) on 03/24/2025 7:34:31 AM Referred By: REFERRED SELF Confirmed By: Anjana Yanes
== END 2025-03-23 16:07 | disposition left against medical advice (07) ==
LOC: ED 13:53 → SUATTDRO 15:35 → INTOOBSV 15:35 → 2N 15:35